=== PATIENT | male | born 1960 | race Caucasian/White ===

== ENCOUNTER 2018-06-24 09:33 | Day surgery (SDC) | payer BC ==
[~2018-06-24 09:33] MED LIST: ACETAMINOPHEN 1,000 MG/100 ML BTL IV ONE
[2018-06-24] MEDS ORDERED: BUPIVACAINE 0.25% W/EPI MPF 30ML VIAL IVP ONE (09:34)
[2018-06-24] MEDS ORDERED: MIDAZOLAM HCL 2MG/2ML VIAL IV ONE (09:34)
[2018-06-24] MEDS ORDERED: PROPOFOL 10 MG/ML VIAL IV ONE (09:34)
[2018-06-24] MEDS ORDERED: FENTANYL PF 100MCG/2ML VIAL IV ONE (09:34)
[2018-06-24] MEDS ORDERED: LIDOCAINE 2% MDV (20MG/ML) 20ML VIAL IV ONE (09:34)
--- NOTE | 2018-06-25 10:00 | Operative Note ---
DATE OF SURGERY: 06/24/2018 Surgeon: Rj Henson DO PREOPERATIVE DIAGNOSIS: Facial mass. POSTOPERATIVE DIAGNOSIS: Facial mass. OPERATION: Wide excision of facial mass measuring 2 x 2 cm in the subcu. Indication: The patient is a 58-year-old male who has had a mass on his cheek. We discussed excision. Risks, benefits, and alternatives were discussed. Risks include bleeding, infection, recurrence, injury to underlying facial nerve. He understood this fully. Thereafter, consent was signed and questions answered. PROCEDURE: The patient was taken to the operating room and placed in a supine position. Local IV sedation was given per the department of anesthesia. The patient's face was prepped and draped in the usual fashion. The area around the mass was anesthetized with a total of 8 mL of 0.25% Sensorcaine with epinephrine. A 2.5 cm incision was made. This was carried down to the capsule of a sebaceous cyst. This was dissected free from surrounding tissue with sharp dissection as well as cautery. The wound was then irrigated and closed with 4-0 nylon. He was taken to the recovery room in satisfactory condition. FINDINGS AT THE TIME OF SURGERY: A 2 cm mass in the subcu resected as above. CC: ESTRELLITA MARX MD, FACP [facility]
== END 2018-06-24 11:52 | disposition home or self-care (01) ==
LOC: SUR 09:33
PROVIDERS: ATTEND Surgery
DX: L72.0 Epidermal cyst (principal); I10 Essential (primary) hypertension
CPT/HCPCS: 11423; 00300; J3010